=== PATIENT | female | born 1965 | race Caucasian/White ===

== ENCOUNTER 2017-06-26 16:27 | Emergency (ER) | payer BC, MEDICAID ==
[~2017-06-26] VITALS: Ht 175.3 cm; Wt 109.1 kg
--- NOTE | 2017-06-26 16:32 | ERD ---
ER Documentation Chief Complaint Chief Complaint Abdominal pain HPI 51-year-old undomiciled female presents to the ED via rescue ambulance for evaluation of abdominal pain. 3 days ago began to experience generalized malaise with subjective fevers, generalized, crampy, moderate abdominal pain with nausea and several episodes of nonbloody, nonbilious emesis per day and 5- 6 episodes of bloody, non-mucoid watery diarrhea per day. No dysuria but no hematuria, polyuria or flank pain. No ill contacts, contaminated food exposure or recent travel. No relieving or exacerbating factors. Nonproductive cough but no shortness of breath or wheezing. Denies chest pain or palpitations. Denies rhinorrhea or odynophagia. ROS All systems reviewed and are negative except as per history of present illness. Medications Home Meds Reported Medications [none] No Conflict Check 09/04/09 Allergies Allergies: Coded Allergies: Sulfamethoxazole (Verified Allergy, Mild, 09/04/09) Trimethoprim (Verified Allergy, Mild, 09/04/09) PMhx/Soc Reviewed in chart. As per HPI. Undomiciled History of Surgery: Yes (Appendectomy, partial hysterectomy) Hx Neurological Disorder: No Hx Respiratory Disorders: No Hx Cardiac Disorders: No Hx Psychiatric Problems: No Hx Miscellaneous Medical Probl: Yes (Benign gastric polyp) Hx Alcohol Use: No Hx Substance Use: No Hx Tobacco Use: Yes (Long history of smoking but quit 2 weeks ago.) FmHx No cancer or stroke. Not relevant to presenting complaint. Physical Exam Vitals Vital Signs Date Time Temp Pulse Resp B/P Pulse Ox O2 Delivery O2 Flow Rate FiO2 06/26/17 16:36 98.3 101 17 147/98 100 Physical Exam Const: Alert, moderate distress due to pain. Head: Atraumatic Eyes: Normal Conjunctiva ENT: Normal External Ears, Nose and Mouth. Neck: Full range of motion. No meningismus. No lymphadenopathy Resp: Sounds are equal and clear to auscultation bilaterally Cardio: Regular rate and rhythm, no murmurs Abd: Soft, obese, nondistended. Normal bowel sounds. Mild, generalized tenderness which localizes to the left greater than right lower quadrant. No rebound or guarding. Masses or abnormal pulsations. Skin: No petechiae or rashes Back: No midline or flank tenderness Ext: No cyanosis, or edema Neur: Awake and alert. No focal deficits. Psych: Normal Mood and Affect Result Diagram: 06/26/17 1645 06/26/17 1645 Results 24 hrs Laboratory Tests Test 06/26/17 16:45 White Blood Count 4.610^3/ul Red Blood Count 4.9810^6/ul Hemoglobin 14.3g/dl Hematocrit 44.3% Mean Corpuscular Volume 89.0fl Mean Corpuscular Hemoglobin 28.7pg Mean Corpuscular Hemoglobin Concent 32.3g/dl Red Cell Distribution Width 13.8% Platelet Count 72426^3/UL Mean Platelet Volume 10.8fl Neutrophils % 68.1% Lymphocytes % 23.4% Monocytes % 7.7% Eosinophils % 0.2% Basophils % 0.2% Nucleated Red Blood Cells % 0.0/100WBC Neutrophils # 3.110^3/ul Lymphocytes # 1.110^3/ul Monocytes # 0.410^3/ul Eosinophils # 0.010^3/ul Basophils # 0.010^3/ul Nucleated Red Blood Cells # 0.010^3/ul Urine Color KEILA Urine Clarity CLOUDY Urine pH 5.0 Urine Specific [place] 1.031 Urine Ketones NEGATIVEmg/dL Urine Nitrite NEGATIVEmg/dL Urine Bilirubin 1+mg/dL Urine Urobilinogen NEGATIVEmg/dL Urine Leukocyte Esterase TRACELeu/ul Urine Microscopic RBC 2/HPF Urine Microscopic WBC 6/HPF Urine Squamous Epithelial Cells MANY/HPF Urine Bacteria FEW/HPF Urine Mucus MANY/HPF Urine Hemoglobin NEGATIVEmg/dL Urine Glucose NEGATIVEmg/dL Urine Total Protein 1+mg/dl Sodium Level 143mmol/L Potassium Level 3.4mmol/L Chloride Level 108mmol/L Carbon Dioxide Level 23mmol/L Anion Gap 15 Blood Urea Nitrogen 12mg/dl Creatinine 0.94mg/dl Glucose Level 105mg/dl Calcium Level 9.7mg/dl Total Bilirubin 0.4mg/dl Direct Bilirubin 0.00mg/dl Indirect Bilirubin 0.4mg/dl Aspartate Amino Transf (AST/SGOT) 34IU/L Alanine Aminotransferase (ALT/SGPT) 58IU/L Alkaline Phosphatase 80IU/L Total Protein 6.9g/dl Albumin 4.0g/dl Globulin 2.90g/dl Albumin/Globulin Ratio 1.37 Lipase 74U/L Current Medications Medications (Trade) Dose Ordered Sig/Gabriella Route PRN Reason Start Time Stop Time Status Last Admin Dose Admin Sodium Chloride (NS) 1,000 ml @ 1,000 mls/hr Q1H STAT IV 06/26/17 16:42 06/26/17 17:41 DC 06/26/17 17:00 Morphine Sulfate (morphine) 4 mg ONCE STAT IV 06/26/17 16:42 06/26/17 16:44 DC 06/26/17 17:00 Ondansetron HCl (Zofran Inj) 4 mg ONCE STAT IV 06/26/17 16:42 06/26/17 16:44 DC 06/26/17 17:00 IV Flush 10 ml 10 ml STK-MED ONCE .ROUTE 06/26/17 17:32 06/26/17 17:33 DC 06/26/17 17:43 Sodium Chloride (NS) 100 ml @ ud STK-MED ONCE .ROUTE 06/26/17 17:32 06/26/17 17:33 DC 06/26/17 17:44 Iohexol 150 ml 150 ml STK-MED ONCE .ROUTE 06/26/17 17:32 06/26/17 17:33 DC 06/26/17 17:44 Piperacillin Sod/ Tazobactam Sod (Zosyn 3.375gm/ 50 ml (Pmx)) 50 ml @ 100 mls/hr ONCE ONCE IV 06/26/17 19:00 06/26/17 19:29 DC 06/26/17 19:13 Potassium Chloride (Klor-Con 20) 20 meq ONCE STAT PO 06/26/17 18:52 06/26/17 18:54 DC 06/26/17 19:12 PROCEDURE: CT abdomen and pelvis with contrast. CLINICAL INDICATION: Abdominal pain, nausea, vomiting and diarrhea for 3 days. TECHNIQUE: CT scan of the abdomen and pelvis with contrast was performed. Coronal and sagittal images were also reformatted. 90 cc Omnipaque-300 intravenous contrast was administered without complication. One or more of the following dose reduction techniques were used: Automated exposure control, adjustment of the mA and/or kV according to patient size, use of iterative reconstruction technique. Total exam CTDIvol = 22.48 mGy and DLP = 1470.71 mGy-cm. COMPARISON: None. FINDINGS: Visualized lower thorax: The lung bases are clear. There is no evidence for pleural effusion. Liver, gallbladder, pancreas and spleen: Normal hepatic contour, attenuation in size. There is no evidence for liver mass or ductal dilatation. Small calcified gallstones are present. There is no evidence of pericholecystic inflammation to suggest cholecystitis. No common bile duct dilatation is evident. The pancreas is normal. Splenomegaly is present the maximum dimension of the spleen 15 cm. Adrenal glands and genitourinary system: The adrenal glands are normal bilaterally. The kidneys are normal in size, contour and attenuation with no evidence for masses, calculi or hydronephrosis. Symmetric enhancement of the kidneys is present without evidence of pyelonephritis The ureters are unremarkable. The urinary bladder shows no abnormality. The uterus and adnexa are unremarkable for the patient's age. Gastrointestinal system: The stomach is top normal in caliber without evidence of wall thickening There is no evidence of obstruction, ileus or inflammation. There is no evidence of appendicitis. Liquid stool is present throughout the entire colon to the level of the rectum the pattern concerning for colitis without stranding of the pericolonic fat. A few diverticula of the distal colon are present but there is no diverticulitis. Peritoneum, retroperitoneum, vessels and lymph nodes: The abdominal aorta is normal in caliber. There is trace iliac system atherosclerotic calcification. Inferior vena cava is normal in caliber. There is no evidence for adenopathy. The peritoneal cavity is normal with no evidence for ascites. No pneumoperitoneum is present Osseous structures and musculoskeletal system: There is no evidence for acute osseous abnormality or muscular pathology. Incidental degenerative disc disease at L3-4 is present. No subcutaneous abnormalities are present. RPTAT:HJJR IMPRESSION: 1. Liquid stool throughout the entire colon is concerning for colitis, diverticular disease of the distal colon is present without diverticulitis. 2. No evidence of bowel obstruction or ileus. 3. Splenomegaly of 15 cm is of uncertain significance. There is no evidence of adenopathy. Physician Bruce Date Time Electronically viewed and signed by Physician Bruce on 06/26/2017 18:38 JR/ Procedures/MDM DOCUMENTS REVIEWED: ED nurse, prior ED. REEXAMINATION/REEVALUATION: Time: 17:30. Doing well. Pain decreased. No vomiting or diarrhea. MEDICAL DECISION MAKIN-year-old undomiciled female presents to the ED via rescue ambulance for evaluation of abdominal pain. CT the abdomen and pelvis performed to evaluate for acute intra-abdominal process including but not limited to diverticulitis, abdominal aortic aneurysm, bowel obstruction, mass/ neoplasm, colitis, mesenteric ischemia, pancreatitis, ruptured viscus and reveals evidence of colitis and diverticulosis without evidence of diverticulitis as described above. Splenomegaly of uncertain etiology will need further outpatient follow-up. No right upper quadrant tenderness, Riley sign, hyperbilirubinemia or other signs of cholelithiasis, cholecystitis or cholangitis. No rebound, guarding, significant tenderness or signs of peritonitis. Pain improved with intravenous hydration, analgesics and antiemetics. Symptoms likely secondary to acute viral gastroenteritis although foodborne illness bacterial enteritis are considered hence antibiotic treatment is appropriate. Stable for discharge of precautionary instructions and outpatient follow-up as counseled. Counseled patient regarding diagnostic workup, diagnosis and need for followup. Understands to return to ED if symptoms recur, worsen or any other concerns. Departure Diagnosis: Primary Impression: Acute generalized abdominal pain Additional Impression: Colitis Condition: Stable (Improved) CATHERINE HOWELL MD Jun 26, 2017 16:32
[2017-06-26 16:36] VITALS: Ht 175.3 cm; Wt 109.1 kg
[2017-06-26] MEDS ORDERED: ONDANSETRON 4 MG INJ IV STA (16:42)
[2017-06-26] MEDS ORDERED: morphine 4 MG/ML VIAL IV STA (16:42)
[2017-06-26] MEDS ORDERED: SOD CHLORIDE 0.9% 1,000 ML IV STA (16:42)
[2017-06-26 16:59] LABS: BASOPHILS % 0.2 % (0.0-2.0); EOSINOPHILS % 0.2 % (0.0-7.0); HEMATOCRIT 44.3 % (37.0-47.0); HEMOGLOBIN 14.3 g/dl (12.0-16.0); LYMPHOCYTES # 1.1 10^3/ul (0.8-2.9); LYMPHOCYTES % 23.4 % (15.0-51.0); MEAN CORPUSCULAR HEMOGLOBIN 28.7 pg (29.0-33.0); MEAN CORPUSCULAR HGB CONC 32.3 g/dl (32.0-37.0); MEAN PLATELET VOLUME 10.8 fl (7.4-10.4); MONOCYTE # 0.4 10^3/ul (0.3-0.9); MONOCYTES % 7.7 % (0.0-11.0); NEUTROPHIL # 3.1 10^3/ul (1.6-7.5); NEUTROPHILS % 68.1 % (39.0-77.0); PLATELET COUNT 273 10^3/UL (140-415); RED BLOOD COUNT 4.98 10^6/ul (4.20-5.40); RED CELL DISTRIBUTION WIDTH 13.8 % (11.5-14.5); WHITE BLOOD COUNT 4.6 10^3/ul (4.8-10.8)
[2017-06-26 17:03] LABS: ADD UMIC YES; UR ASCORBIC ACID NEGATIVE (NEGATIVE); UR BACTERIA FEW /HPF (NONE SEEN); UR BILIRUBIN (Dip) 1+ mg/dL (NEGATIVE); UR BLOOD (Dip) NEGATIVE (NEGATIVE); UR CLARITY CLOUDY (CLEAR); UR COLOR AMBER (YELLOW); UR GLUCOSE (Dip) NEGATIVE (NEGATIVE); UR KETONES (Dip) NEGATIVE (NEGATIVE); UR LEUKOCYTE ESTERASE (Dip) TRACE Leu/ul (NEGATIVE); UR MUCUS MANY /HPF (NONE SEEN); UR NITRITE (Dip) NEGATIVE (NEGATIVE); UR RBC 2 /HPF (0-5); UR SPECIFIC GRAVITY (Dip) 1.031 (1.003-1.030); UR SQUAMOUS EPITHELIAL CELL MANY /HPF (FEW); UR TOTAL PROTEIN (Dip) 1+ mg/dl (NEGATIVE); UR UROBILINOGEN (Dip) NEGATIVE (NEGATIVE)
[2017-06-26 17:15] LABS: ALBUMIN/GLOBULIN RATIO 1.37; BILIRUBIN,INDIRECT 0.4 mg/dl (0-1.1); BILIRUBIN,TOTAL 0.4 mg/dl (0.2-1.3); CALCIUM 9.7 mg/dl (8.4-10.2); CREATININE 0.94 mg/dl (0.44-1.00); POTASSIUM 3.4 mmol/L (3.5-5.1); TOTAL PROTEIN 6.9 g/dl (6.1-8.1)
[2017-06-26] MEDS ORDERED: SOD CHLORIDE 0.9% 100 ML ONE (17:32)
[2017-06-26] MEDS ORDERED: IOHEXOL 300MG/ML 150 ML BTL ONE (17:32)
--- NOTE | 2017-06-26 18:38 | RADRPT ---
PROCEDURE: CT abdomen and pelvis with contrast. CLINICAL INDICATION: Abdominal pain, nausea, vomiting and diarrhea for 3 days. TECHNIQUE: CT scan of the abdomen and pelvis with contrast was performed. Coronal and sagittal im ages were also reformatted. 90 cc Omnipaque-300 intravenous contrast was administered without compl ication. One or more of the following dose reduction techniques were used: Automated exposure contro l, adjustment of the mA and/or kV according to patient size, use of iterative reconstruction techniq ue. Total exam CTDIvol = 22.48 mGy and DLP = 1470.71 mGy-cm. COMPARISON: None. FINDINGS: Visualized lower thorax: The lung bases are clear. There is no evidence for pleural effusion. Liver, gallbladder, pancreas and spleen: Normal hepatic contour, attenuation in size. There is no evidence for liver mass or ductal dilatation. Small calcified gallstones are present. There is no e vidence of pericholecystic inflammation to suggest cholecystitis. No common bile duct dilatation is evident. The pancreas is normal. Splenomegaly is present the maximum dimension of the spleen 15 c m. Adrenal glands and genitourinary system: The adrenal glands are normal bilaterally. The kidneys ar e normal in size, contour and attenuation with no evidence for masses, calculi or hydronephrosis. Sy mmetric enhancement of the kidneys is present without evidence of pyelonephritis The ureters are unr emarkable. The urinary bladder shows no abnormality. The uterus and adnexa are unremarkable for th e patient's age. Gastrointestinal system: The stomach is top normal in caliber without evidence of wall thickening There is no evidence of obstruction, ileus or inflammation. There is no evidence of appendicitis. L iquid stool is present throughout the entire colon to the level of the rectum the pattern concerning for colitis without stranding of the pericolonic fat. A few diverticula of the distal colon are pre sent but there is no diverticulitis. Peritoneum, retroperitoneum, vessels and lymph nodes: The abdominal aorta is normal in caliber. Th ere is trace iliac system atherosclerotic calcification. Inferior vena cava is normal in caliber. There is no evidence for adenopathy. The peritoneal cavity is normal with no evidence for ascites. No pneumoperitoneum is present Osseous structures and musculoskeletal system: There is no evidence for acute osseous abnormality o r muscular pathology. Incidental degenerative disc disease at L3-4 is present. No subcutaneous abnor malities are present. RPTAT:HJJR IMPRESSION: 1. Liquid stool throughout the entire colon is concerning for colitis, diverticular disease of the d istal colon is present without diverticulitis. 2. No evidence of bowel obstruction or ileus. 3. Splenomegaly of 15 cm is of uncertain significance. There is no evidence of adenopathy. Physician Bruce Date Time Electronically viewed and signed by Milind Tinoco Physician on 06/26/2017 18:38 JR/
[2017-06-26] MEDS ORDERED: POTASSIUM CHLORIDE (SR) 20 MEQ TAB PO STA (18:52)
[2017-06-26] MEDS ORDERED: PIPER-TAZO 3.375 GM IV (PMX) 50 ML IV ONE (19:00)
[2017-06-26] MEDS ORDERED: CIPR500T4 PO (19:43)
[2017-06-26] MEDS ORDERED: METR500T PO (19:43)
[2017-06-26] MEDS ORDERED: TRAM50TA2 PO (19:43)
[2017-06-26 21:27] VITALS: BP 135/87; PULSE 78; RESP 18; TEMP 99
== END 2017-06-26 21:28 | disposition home or self-care (01) ==
LOC: E/R 16:27
DX: K52.9 Noninfective gastroenteritis and colitis, unspecified (principal); R40.2252 Coma scale, best verbal response, oriented, at arrival to emergency department; R40.2142 Coma scale, eyes open, spontaneous, at arrival to emergency department; R40.2362 Coma scale, best motor response, obeys commands, at arrival to emergency department; Z87.891 Personal history of nicotine dependence
CPT/HCPCS: 36415; 74177; 80053; 81001; 83690; 85025; 96374; 96375; 99285; J2270; J2405; J2543; J7030; Q9967

== ENCOUNTER 2018-08-14 18:19 | Emergency (ER) | payer BC, OTHER ==
[~2018-08-14] VITALS: Ht 175.3 cm; Wt 109.1 kg
[~2018-08-14 18:19] MED LIST: CIPR500T4 PO; IBUP-1542 PO; METR500T PO; TRAM50TA2 PO
[2018-08-14] MEDS ORDERED: predniSONE 20 MG TAB PO STA (18:24)
[2018-08-14] MEDS ORDERED: IPRATROPIUM (NEB) 0.5 MG/2.5 ML AMP NEB STA (18:24)
[2018-08-14] MEDS ORDERED: ALBUTEROL 0.083% (NEB) 2.5 MG/3 ML AMP NEB STA (18:24)
[2018-08-14] MEDS ORDERED: IBUPROFEN 800 MG TAB PO ONE (18:30)
[2018-08-14 18:47] VITALS: Ht 175.3 cm; Wt 109.1 kg
[2018-08-14] MEDS ORDERED: PRED20TA PO (19:03)
[2018-08-14] MEDS ORDERED: LEVO750T25 PO (19:03)
[2018-08-14] MEDS ORDERED: IBUP800T48 PO (19:03)
[2018-08-14] MEDS ORDERED: ALBU18HF INHALATION (19:03)
--- NOTE | 2018-08-14 19:08 | ERD ---
ER Documentation Chief Complaint Chief Complaint BIB RA for back pain/chest pain x4 days w/ SOB HPI 53-year-old female history of COPD who states that she has quit smoking but had a cigarette today. The patient states that she has upper back pain and cough for approximately 3 weeks. She states the cough is minimally productive. The back pain is not alleviated by tramadol. She denies any pleuritic pain. No fevers or chills. Patient describes some shortness of breath and wheezing. No chest pressure. No exertional symptoms. ROS All systems reviewed and are negative except as per history of present illness. Medications Home Meds Active Scripts Ibuprofen* (Motrin*) 800 Mg Tab, 800 MG PO Q6H PRN for PAIN AND OR ELEVATED TEMP, #30 TAB Prov:TAD COOL MD 08/14/18 Levofloxacin* (Levaquin*) 750 Mg Tablet, 750 MG PO DAILY for 5 Days, TAB Prov:TAD COOL MD 08/14/18 Prednisone* (Prednisone*) 20 Mg Tab, 40 MG PO DAILY for 4 Days, TAB Prov:TAD COOL MD 08/14/18 Albuterol Sulfate* (Ventolin HFA*) 18 Gm Hfa.aer.ad, 2 PUFF INHALATION Q4H, #1 INHALER Prov:TAD COOL MD 08/14/18 Ibuprofen* (Motrin*) 600 Mg Tab, 600 MG PO Q6, #30 TAB Prov:CESAR ALCANTARA PA-C 01/13/18 Tramadol HCl (Tramadol HCl) 50 Mg Tablet, 50 MG PO Q6 PRN for PAIN, #12 TAB Prov:CATHERINE HOWELL MD 06/26/17 Metronidazole* (Flagyl*) 500 Mg Tablet, 500 MG PO TID for 7 Days, TAB Prov:CATHERINE HOWELL MD 06/26/17 Ciprofloxacin Hcl* (Ciprofloxacin Hcl*) 500 Mg Tablet, 500 MG PO BID for 7 Days, TAB Prov:CATHERINE HOWELL MD 06/26/17 Reported Medications [none] No Conflict Check 09/04/09 Allergies Allergies: Coded Allergies: sulfamethoxazole (Verified Allergy, Mild, 09/04/09) trimethoprim (Verified Allergy, Mild, 09/04/09) acetaminophen (Verified Adverse Reaction, Mild, "overdosed on tylenol at age 17", 01/13/18) PMhx/Soc History of Surgery: Yes (Appendectomy, partial hysterectomy) Hx Neurological Disorder: No Hx Respiratory Disorders: Yes (COPD, asthma) Hx Cardiac Disorders: No Hx Psychiatric Problems: No Hx Miscellaneous Medical Probl: Yes (Benign gastric polyp) Hx Alcohol Use: No Hx Substance Use: No Hx Tobacco Use: No Smoking Status: Former smoker FmHx Family History: No diabetes Physical Exam Vitals Vital Signs Date Temp Pulse Resp B/P (MAP) Pulse Ox O2 O2 Flow FiO2 Time Delivery Rate 08/14/18 98.6 85 20 135/95 98 18:47 (108) Physical Exam General: Well developed, well nourished, no acute distress Head: Normocephalic, atraumatic. Eyes: Pupils equally reactive, EOM intact ENT: Moist mucous membranes Neck: Supple, no lymphadenopathy Respiratory: Scant wheezing bilaterally but good aeration Cardiovascular: RRR, no murmurs, rubs, or gallops Abdominal: Soft, non-tender, non-distended, no peritoneal signs : Deferred MSK: No edema, no unilateral swelling, 5/5 strength Neurologic: Alert and oriented, moving all extremities, normal speech, no focal weakness, no cerebellar signs Skin: No rash Psych: Normal mood Results 24 hrs Current Medications Medications Dose Sig/Gabriella Start Time Status Last (Trade) Ordered Route PRN Stop Time Admin Dose Reason Admin Albuterol 2.5 mg ONCE STAT 08/14/18 DC (Proventil NEB 18:24 0.083% (Neb)) 08/14/18 18:26 Ipratropium 0.5 mg ONCE STAT 08/14/18 DC [place] NEB 18:24 (Atrovent 08/14/18 18:26 0.02% (Neb)) Prednisone 60 mg ONCE STAT 08/14/18 DC 08/14/18 (Prednisone) PO 18:24 19:03 08/14/18 18:26 Ibuprofen 800 mg ONCE ONCE 08/14/18 DC 08/14/18 (Motrin) PO 18:30 19:04 08/14/18 18:31 Procedures/MDM EKG, MONITORS, & DIAGNOSTIC IMAGING: Chest x-ray: I reviewed and interpreted a 1 view of the chest Mediastinum: No enlargement Cardiac silhouette: No cardiomegaly Airspace: Clear lung marmolejo bilaterally without evidence of pneumothorax Bones: No evidence of fracture MEDICAL DECISION MAKING: Patient's clinical exam and presentation is very consistent with COPD flare. Her back pain is very reproducible with coughing. No signs or symptoms c oncerning for acute coronary syndrome or dissection or pulmonary embolism. Patient has no pleuritic discomfort and no hypoxia. Patient will benefit from chest x-ray, breathing treatment, steroids and likely outpatient antibiotics for COPD flare. ER COURSE: * Patient was given a breathing treatment. Chest x-ray is normal. * At this point I feel the patient is safe for discharge. She has no hypoxia no respiratory distress. The patient is tolerating oral intake and symptoms are well controlled. The patient will benefit from a short course of steroids and antibiotics as well as nebulizer treatment. * Smoking Cessation: I had a greater than 3 minute conversation with the patient regarding smoking cessation. We discussed multiple alternatives. CONSULTATION: [None] DISPOSITION PLAN: The patient does not have an identifiable emergent medical condition that warrants inpatient hospitalization at this time. The patient is deemed safe for discharge with outpatient follow-up. We discussed follow up with the patient's primary care doctor within 24 to 48 hours as needed. We also discussed return to the emergency room for worsening symptoms or worsening condition. Outpatient referral: [None required] Discharge Medications: Albuterol, Levaquin, prednisone Departure Diagnosis: Primary Impression: COPD exacerbation Condition: Good Patient Instructions: Copd Flare Referrals: [facility] YOU HAVE RECEIVED A MEDICAL SCREENING EXAM AND THE RESULTS INDICATE THAT YOU DO NOT HAVE A CONDITION THAT REQUIRES URGENT TREATMENT IN THE EMERGENCY DEPARTMENT. FURTHER EVALUATION AND TREATMENT OF YOUR CONDITION CAN WAIT UNTIL YOU ARE SEEN IN YOUR DOCTORS OFFICE WITHIN THE NEXT 1-2 DAYS. IT IS YOUR RESPONSIBILITY TO MAKE AN APPOINTMENT FOR [facility]ARE. IF YOU HAVE A PRIMARY DOCTOR --you should call your primary doctor and schedule an appointment IF YOU DO NOT HAVE A PRIMARY DOCTOR YOU CAN CALL OUR PHYSICIAN REFERRAL HOTLINE AT IF YOU CAN NOT AFFORD TO SEE A PHYSICIAN YOU CAN CHOSE FROM THE FOLLOWING [facility] [address] [facility] [address] [facility] [address] [facility] [address] [facility]. [facility] [address] [facility]. [facility]. [address] [facility]. [facility] YOU HAVE RECEIVED A MEDICAL SCREENING EXAM AND THE RESULTS INDICATE THAT YOU DO NOT HAVE A CONDITION THAT REQUIRES URGENT TREATMENT IN THE EMERGENCY DEPARTMENT. FURTHER EVALUATION AND TREATMENT OF YOUR CONDITION CAN WAIT UNTIL YOU ARE SEEN IN YOUR DOCTORS OFFICE WITHIN THE NEXT 1-2 DAYS. IT IS YOUR RESPONSIBILITY TO MAKE AN APPOINTMENT FOR FOLOW-UP CARE. IF YOU HAVE A PRIMARY DOCTOR --you should call your primary doctor and schedule and appointment IF YOU DO NOT HAVE A PRIMARY DOCTOR YOU CAN CALL OUR PHYSICIAN REFERRAL HOTLINE AT . IF YOU CAN NOT AFFORD TO SEE A PHYSICIAN YOU CAN CHOSE FROM THE FOLLOWING [facility] INSTITUTIONS: [facility] [place] [address] [place] [address] [facility] [address] [place] [address] [facility] [address] [place] [address] Additional Instructions: Call your primary care doctor TOMORROW for an appointment during the next 1 WEEK.Tell the corporation secretary that you were referred from this facility.See the doctor sooner or return here if your condition worsens before your appointment time. TAD COOL MD Aug 14, 2018 19:08
[2018-08-14] MEDS ORDERED: HYDROCODONE/APAP (10/325) TAB PO ONE (20:00)
[2018-08-14 20:02] VITALS: BP 110/70; PULSE 90; RESP 16
== END 2018-08-14 20:15 | disposition home or self-care (01) ==
LOC: E/R 18:19
DX: J44.1 Chronic obstructive pulmonary disease with (acute) exacerbation (principal); J45.909 Unspecified asthma, uncomplicated; Z87.891 Personal history of nicotine dependence
CPT/HCPCS: 71045; 94664; 99283; J7512